=== PATIENT | male | born 1965 | race Caucasian/White ===

== ENCOUNTER → 2023-09-08 13:32 | Outpatient (CLI) | payer OTHER, MEDICAID, SELFPAY ==
--- NOTE | 2023-09-08 13:33 | DI.ECHO.S_ITS ---
[facility] : : [address] : : [place] : : [id number] : : Phone: [phone] Echocardiogram Report + + :Name: YESENIA RILEY Study Date: 09/08/2023 Height: 73 in : :Hospital ReadingLocation: Weight: 250 lb : : Gender: Male BSA: 2.4 m2 : :: 1965 Age: 58 yrs BP: 154/90 mmHg: :Reason For Study: ATHEROSCLEROTIC HEART DISEASE : :Ordering Physician: EVANGELINA, : :TORI Navarro Performed By: Emily Porter : :Referring: TORI GARCIA : + + Interpretation Summary There is mild concentric left ventricular hypertrophy. The ejection fraction is estimated to be 60-65%. Diastolic parameters suggest probable normal left ventricular diastolic function and normal filling pressures. The right ventricle is normal in size and function. There is trace aortic regurgitation. The tricuspid valve is normal in structure and function. Pulmonary artery pressures cannot be estimated because of the lack of a measurable TR jet velocity. The ascending aorta is mildly enlarged, 4.0 cm. Procedure: A two-dimensional transthoracic echocardiogram with color flow and Doppler was performed. The study quality was technically adequate. There is no prior echocardiogram noted for this patient. The patient was in sinus rhythm with heart rates between 72-82 bpm during the exam. Left Ventricle: The left ventricle is normal in size. There is mild concentric left ventricular hypertrophy. The ejection fraction is estimated to be 60-65%. Diastolic parameters suggest probable normal left ventricular diastolic function and normal filling pressures. Right Ventricle: The right ventricle is normal in size and function. Atria: The left atrial size is normal. Right atrial size is normal. There is no Doppler evidence for an interatrial shunt. Mitral Valve: The mitral valve is normal in structure and function. There is trace mitral regurgitation. Aortic Valve: The aortic valve is moderately calcified. Focal calcification and decreased leaflet excursion of the right coronary cusp. The peak aortic velocity is 2.1 m/sec. The aortic valve mean gradient is 9.5 mmHg. There is no hemodynamically significant valvular aortic stenosis. There is trace aortic regurgitation. Tricuspid Valve: The tricuspid valve is normal in structure and function. There is trace tricuspid regurgitation. Pulmonary artery pressures cannot be estimated because of the lack of a measurable TR jet velocity. Pulmonic Valve: The pulmonic valve leaflets are thin and pliable; valve motion is normal. There is trace pulmonic regurgitation. Great Vessels: The aortic root is normal size. The ascending aorta is mildly enlarged. The inferior vena cava was not visualized. Pericardium/ Pleura There is no pericardial effusion. There is no pleural effusion. MMode/2D Measurements & Calculations LVIDd: 4.8 cm LVOT diam: 2.2 cm LVIDs: 3.0 cm Ao root diam: 3.6 cm FS: 36.8 % asc Aorta Diam: 4.0 cm IVSd: 1.2 cm Ao Arch Diam (Prox Trans): 3.4 cm LVPWd: 1.3 cm LV [place]. diameter/BSA (cm/m^2): 2.0 LV sys. diameter/BSA (cm/m^2): 1.3 LA A2 area: 15.5 cm2 RA long axis: 5.0 cm LA A4 area: 17.9 cm2 RA area: 15.8 cm2 LA length (vol): 5.4 cm RA vol: 42.8 ml LA vol: 43.5 ml RA : 18.1 ml/m2 LA vol index: 18.4 ml/m2 RVD1 (basal): 3.9 cm TAPSE: 2.0 cm Doppler Measurements & Calculations Ao V2 max: 206.8 cm/sec LVOT Max Agus: 112.9 cm/sec Ao V2 mean: 146.3 cm/sec LV V1 max P.1 mmHg Ao max P.1 mmHg LV V1 VTI: 20.7 cm Ao mean P.5 mmHg PETE(I,D): 2.2 cm2 Ao V2 VTI: 36.7 cm PETE(V,D): 2.2 cm2 sev ratio: 0.56 PETE indexed to BSA (cm^2/m^2): 0.94 MV E max agus: 55.8 cm/sec PA V2 max: 96.8 cm/sec MV A max agus: 67.5 cm/sec PA V2 mean: 76.5 cm/sec MV E/A: 0.83 PA mean P.4 mmHg Med Peak E' Agus: 3.8 cm/sec PA pr(Accel): 25.9 mmHg E/E' med: 14.6 Lat Peak E' Agus: 6.0 cm/sec E/E' lat: 9.3 E/e' average: 11.9 MV dec time: 0.37 sec SV(LVOT): 81.6 ml Reading Physician:04:31 PM
== END ==
LOC: ECHO 13:33
PROVIDERS: PCP Family Medicine; Referring Provider Internal Medicine Cardiovascular Disease; Visit Provider Internal Medicine Cardiovascular Disease
DX: I25.10 Atherosclerotic heart disease of native coronary artery without angina pectoris (principal); R55 Syncope and collapse; I77.89 Other specified disorders of arteries and arterioles
CPT/HCPCS: 93306